=== PATIENT | male | born 1970 | race Caucasian/White ===

== ENCOUNTER → 2018-01-16 | Outpatient (CLI) | payer OTHER ==
[2013-12-27 14:41] VITALS: BMI 35.8
[~2018-01-16] MED LIST: AMLO-111 PO; ASC500 PO; ESCI20TA38 PO; ESOM40CA42 PO; FLU10 PO; FLUO40CA76 PO; KET10 PO; LISI-362 PO; LOR5/325 PO; LOSA-38 PO; MULT-820 PO; ONDA4TAB PO; PRAV10TA45 PO; PROM-110 PO; TEST200V20 IM
--- NOTE | 2018-01-16 16:42 | RADIOLOGY IMAGING REPORT ---
FACILITY: [facility] PATIENT NAME: Jw Jarrell : 1970 MR: [id number] V: [id number] EXAM DATE: ORDERING PHYSICIAN: MISSAEL STRATTON TECHNOLOGIST: Location: [facility] - [place] Patient: Jw Jarrell : 1970 Visit/Account:[id number] Date of Sevice: 01/16/2018 LUMBAR SPINE 2 OR 3 VIEW HISTORY: Low back pain AP, lateral, and oblique views of lumbar spine. FINDINGS: No acute bony pathology. Vertebral bodies well-maintained respect to height. Very minimal retrolist hesis of L2 with respect to L3. No spondylolysis or spondylolisthesis. Disc space narrowing changes of a moderate degree at the L2-L3 level. Minimal disc space narrowing w ith anterior spurring change seen at the L1-2 level. Oblique views demonstrates no significant facet arthropathy. IMPRESSION: 1. Negative lumbar spine for acute pathology. Mild degenerative changes as described. Report Dictated By: Geremias Cunha MD at 01/16/2018 4:35 PM Report E-Signed By: Geremias Cunha MD at 01/16/2018 4:39 PM WSN:[email or web address]
--- NOTE | 2018-01-16 16:55 | RADIOLOGY IMAGING REPORT ---
[place] [facility] [place] NAME: Jw Jarrell : 1970 MR: [id number] V: [id number] EXAM DATE: ORDERING PHYSICIAN: MISSAEL STRATTON TECHNOLOGIST: Location: [facility] Patient: Jw Jarrell : 1970 Visit/Account:[id number] Date of Sevice: 01/16/2018 ELBOW 3 VIEW LEFT Three-view examination of the left elbow. FINDINGS: No acute osseous pathology. Prominent 1.7 cm enthesopathy change at the insertion of the triceps ten don on the posterior olecranon. There is a well-corticated bony ossicle adjacent to the lateral cond yle. No joint effusion. Small spurring change from coronoid process. IMPRESSION: 1. Mild degenerative changes within the elbow joint as described. Report Dictated By: Geremias Cunha MD at 01/16/2018 4:44 PM Report E-Signed By: Geremias Cunha MD at 01/16/2018 4:50 PM WSN:[email or web address]
--- NOTE | 2018-01-16 17:11 | RADIOLOGY IMAGING REPORT ---
FACILITY: [facility] PATIENT NAME: Jw Jarrell : 1970 MR: [id number] V: [id number] EXAM DATE: ORDERING PHYSICIAN: MISSAEL STRATTON TECHNOLOGIST: Location: [facility] Patient: Jw Jarrell : 1970 Visit/Account:[id number] Date of Sevice: 01/16/2018 Exam type: VENOUS DOPP LOW RIGHT EXTREMIT History: utility worker driver, medial thigh pain Comparison: None. Findings: The right lower extremity veins were imaged including the right common femoral vein, greater saphenou s vein, superficial femoral vein, popliteal vein, posterior tibial vein, peroneal vein and anterior t ibial veins revealing no evidence of intrarenal thrombi. The veins were compressible and demonstrate d augmentation IMPRESSION: 1. No sonographic evidence DVT involving the right lower extremity veins Report Dictated By: Chanelle Patel MD at 01/16/2018 5:05 PM Report E-Signed By: Chanelle Patel MD at 01/16/2018 5:06 PM WSN:[email or web address]
== END ==
LOC: US 01:01
PROVIDERS: ATTEND Family Medicine
DX: M19.022 Primary osteoarthritis, left elbow (principal); M51.36 Other intervertebral disc degeneration, lumbar region
CPT/HCPCS: 72120